=== PATIENT | male | born 1995 | race Caucasian/White ===

== ENCOUNTER 2019-01-14 11:39 | Emergency (ER) | payer BC ==
--- NOTE | 2019-01-14 13:04 | ED ---
Complaint/Male - History of Current Complaint Chief Complaint: EDUrogenitalProblems Time Seen by Provider: 01/14/19 12:46 - Allergies/Home Medications Allergies/Adverse Reactions: Allergies Allergy/AdvReac Type Severity Reaction Status Date / Time gluten Allergy GI Upset Verified 01/14/19 11:49 lactase [From Dairy Aid] Allergy GI Upset Verified 01/14/19 11:49 Home Medications: Home Medications NK [No Home Medications Reported] 01/14/19 [History Confirmed 01/14/19] PMH/Surg Hx/FS Hx/Imm Hx Infectious Disease History: No Infectious Disease History: Denies: Traveled Outside the [place] in Last 30 Days - Social History Alcohol Use: Rare Substance Use Type: Reports: Other Substance Use Comment - Amount & Last Used: pt states vaping nicotine Smoking Status (MU): Never Smoked Tobacco Physical Exam Vital Signs On Initial Exam: Initial Vitals Temp Pulse Resp BP Pulse Ox 98 F 75 16 123/93 99 01/14/19 11:49 01/14/19 11:49 01/14/19 11:49 01/14/19 11:49 01/14/19 11:49 Diagnostics - Vital Signs Vital Signs Temp Pulse Resp BP Pulse Ox 01/14/19 11:49 98 F 75 16 123/93 99 - Laboratory Lab Results: Lab Results 01/14/19 Range/Units 12:32 C.trachomatis (Amp Det) Pending N.gonorrhoeae (Amp Det) Pending Lab Statement: Any lab studies that have been ordered have been reviewed, and results considered in the medical decision making process.
--- NOTE | 2019-01-14 13:05 | ED ---
GI/ HPI - HPI Summary HPI Summary: 23-year-old male with no significant past medical history reports emergency department today after waking up with right testicular pain. He describes his pain as 6 out of 10" aching pain" in his right testicle with associated nausea. He denies recent fevers or history of cryptorchidism. He admits to recent unprotected intercourse with an old female partner. he denies fever, penile discharge, erythema of the testicles or swelling, chest pain, abdominal pain, diarrhea. - History of Current Complaint Chief Complaint: EDUrogenitalProblems Time Seen by Provider: 01/14/19 12:46 Stated Complaint: TESTICULAR PAIN PER PT Hx Obtained From: Patient Onset/Duration: Started Hours Ago Timing: Constant Severity: Moderate Current Severity: Mild Pain Intensity: 3 Additional Locations for Males: Testicles Pain Characteristics: Aching Associated Signs and Symptoms: Positive: Nausea. Negative: Back Pain, Vomiting , Blood w/Stool, Diarrhea, Fever, Dysuria, Chills, Abdominal Pain, Chest Pain, New Sexual Partner, UTI Symptoms Additional Signs & Symptoms: Negative: Penile Swelling, Penile Discharge, Lesions Aggravating Factor(s): Movement, Movement, Walking/Exertion Alleviating Factor(s): Rest - Allergy/Home Medications Allergies/Adverse Reactions: Allergies Allergy/AdvReac Type Severity Reaction Status Date / Time gluten Allergy GI Upset Verified 01/14/19 11:49 lactase [From Dairy Aid] Allergy GI Upset Verified 01/14/19 11:49 PMH/Surg Hx/FS Hx/Imm Hx Infectious Disease History: No Infectious Disease History: Denies: Traveled Outside the [place] in Last 30 Days - Social History Alcohol Use: Rare Substance Use Type: Reports: Other Substance Use Comment - Amount & Last Used: pt states vaping nicotine Smoking Status (MU): Never Smoked Tobacco Review of Systems Constitutional: Negative Eyes: Negative ENT: Negative Cardiovascular: Negative Respiratory: Negative Gastrointestinal: Negative Positive: pain Musculoskeletal: Negative Skin: Negative Neurological: Negative Psychological: Normal All Other Systems Reviewed And Are Negative: Yes Physical Exam Triage Information Reviewed: Yes Vital Signs On Initial Exam: Initial Vitals Temp Pulse Resp BP Pulse Ox 98 F 75 16 123/93 99 01/14/19 11:49 01/14/19 11:49 01/14/19 11:49 01/14/19 11:49 01/14/19 11:49 Vital Signs Reviewed: Yes Appearance: Positive: Well-Appearing, No Pain Distress, Well-Nourished Skin: Positive: Warm, Skin Color Reflects Adequate Perfusion Eyes: Positive: EOMI, YONAS ENT: Positive: Hearing grossly normal Respiratory/Lung Sounds: Positive: Clear to Auscultation, Breath Sounds Present Cardiovascular: Positive: RRR, S1, S2 Abdomen Description: Positive: Nontender, Soft Bowel Sounds: Positive: Present Male Genital Exam: Positive: No Hernia, Epididymal Tenderness, Testicular Tenderness (R), Other - Cremasteric reflex intact bilaterally. Negative Prehn' s sign. No evidence of hernia on examination. No edema noted to the scrotum or erythema. Testicular examination chaperoned by HAIDER Perea. Negative: Erythema , Inguinal Tenderness, Lesions, Scrotum Tenderness (R), Scrotum Tenderness (L), Testicular Tenderness (L), Urethral Discharge Musculoskeletal: Positive: Strength/ROM Intact Neurological: Positive: Sensory/Motor Intact, Alert, Oriented to Person Place, Time, Normal Gait, Speech Normal Psychiatric: Positive: Normal AVPU Assessment: Alert Procedures - Sedation Patient Received Moderate/Deep Sedation with Procedure: No Diagnostics - Vital Signs Vital Signs Temp Pulse Resp BP Pulse Ox 01/14/19 11:49 98 F 75 16 123/93 99 - Laboratory Lab Results: Lab Results 01/14/19 Range/Units 12:32 C.trachomatis (Amp Det) Pending N.gonorrhoeae (Amp Det) Pending Lab Statement: Any lab studies that have been ordered have been reviewed, and results considered in the medical decision making process. GIGU Course/Dx - Course Course Of Treatment: Patient was examined in the emergency department today for testicular pain. The patient was seen and evaluated his vitals are stable. Gonorrhea and Chlamydia cultures were obtained as well as a testicular ultrasound which was negative for torsion but did find evidence of epididymitis. He was given 1 dose of levofloxacin in the emergency department and given a prescription for 9 days of levofloxacin (10 days total antibiotic therapy.) He was told that we would contact him if Chlamydia and gonorrhea cultures resulted as positive and provide the appropriate treatment at that time. Patient agrees with plan. - Diagnoses Differential Diagnoses - Male: Balanitis, Epididymitis, STD, Testicular Torsion , Urinary Tract Infection Provider Diagnoses: Epididymitis Discharge ED - Sign-Out/Discharge Documenting (check all that apply): Patient Departure - Discharge Plan Condition: Stable Disposition: HOME Prescriptions: Levofloxacin TAB* [Levaquin 500 Tab*] 500 mg PO DAILY #9 tab Patient Education Materials: Epididymitis (ED) [facility] [Primary Care Provider] - 1 Day Additional Instructions: You were seen in the emergency department today for testicular pain. An ultrasound was done which showed evidence of epididymitis. Please take levofloxacin once daily for treatment of this bacterial infection. You may also take ibuprofen 600 mg every 6 hours as needed for pain. We've taken cultures for gonorrhea and chlamydia and we will contact you if this results as positive. Until cultures return please refrain from sexual activity. Please return to the emergency department immediately if you develop any new or worsening symptoms. - Billing Disposition and Condition Condition: STABLE Disposition: Home - Attestation Statements Provider Attestation: I was available for consult. This patient was seen by the BOB. The patient was not presented to, seen by, or examined by me. Benny Perez MD
[2019-01-14 13:31] LABS: Urine Appearance Cloudy; Urine Bilirubin Negative (Negative); Urine Blood Negative (Negative); Urine Color Amber; Urine Glucose Negative (Negative); Urine Ketones Trace (Negative); Urine Nitrite Negative (Negative); Urine Protein 2+(100 mg/dL) (Negative); Urine Specific Gravity 1.032 (1.010-1.030); Urine Urobilinogen Negative (Negative)
[2019-01-14] MEDS ORDERED: Levofloxacin TAB* 500 MG PO ONE (13:31)
[2019-01-14 13:34] LABS: Urine Bacteria Absent (Absent); Urine Red Blood Cell 1+(3-5/hpf) (Absent); Urine White Blood Cell 1+(6-10/hpf) (Absent)
[2019-01-14 14:32] VITALS: BP 131/90
[2019-01-15 14:27] LABS: Chlamydia trachomatis NAA Negative (Negative); Neisseria gonorrhoeae (GC) NAA Negative (Negative)
== END 2019-01-14 13:52 | disposition home or self-care (01) ==
LOC: ED 11:39
DX: N45.1 Epididymitis (principal); R11.0 Nausea; F17.290 Nicotine dependence, other tobacco product, uncomplicated
CPT/HCPCS: 76870; 81003; 81015; 87086; 87491; 87591; 99282